=== PATIENT | female | born 1965 | race Caucasian/White ===

== ENCOUNTER → 2016-07-24 | Outpatient (CLI) | payer BC ==
--- NOTE | 2016-07-24 09:44 | WWHP ---
DATE OF SERVICE: 07/24/2016 CHIEF COMPLAINT: The patient is here for her routine gynecologic exam and mammogram. HPI: This is a 51-year-old, G2, P2 with an LMP of 06/23/2016. She states her periods have been somewhat irregular this past year with several skipped periods. She had gone several months without a period when she had a very painful in 12/2015. She again went without periods until 05/2016 when she again had a fairly painful period. Her last menstrual period on 06/23/16 was fine and not very painful. She had occasional hot flashes in the fall, but currently is not experiencing them. PAST MEDICAL HISTORY: Chronic hypertension, sinus problems, seasonal allergies, elevated cholesterol, borderline diabetes, and depression. MEDICATIONS: 1. Labetalol 100 mg b.i.d. 2. Prozac 20 mg daily. 3. Aspirin 325 mg daily. 4. Zyrtec p.r.n. 5. Multivitamin daily. 6. Ibuprofen p.r.n. Allergies to PENICILLIN and ENTEX. 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 FAMILY HISTORY: She had a sister this past year with a brain tumor and also a history of mother who had breast cancer and [place]. Father had hypertension and an [place]. REVIEW OF SYSTEMS: Weight has been stable. She denies respiratory or cardiac problems. GI: She tends to get constipated before her periods. PHYSICAL EXAM: Blood pressure 161/81. Height 5 feet 3 inches. Weight 185 pounds. Temperature 97.9, pulse 59. This is a well-developed, well-nourished white female who is alert and oriented x3 in no acute distress. HEENT is within normal limits. NECK: Supple without mass or thyromegaly. CHEST AND LUNGS: Clear to auscultation. HEART: Regular rate and rhythm. Breasts are without mass or discharge, but they are mildly tender throughout. Axillary exam is negative for adenopathy. BACK: Negative for CVA tenderness. ABDOMEN: Soft, nontender, without palpable masses. PELVIC EXAM: External genitalia reveals mild atrophy without lesions. Cervix and vagina reveal minimal atrophy without lesions. There is no evidence of prolapse. The uterus is midposition, nongravid size and nontender. There are no palpable adnexal masses or tenderness. Rectovaginal exam is negative for mass or tenderness and is negative for occult blood. EXTREMITIES: Nontender. IMPRESSION: 1. A 51-year-old perimenopausal female with normal gynecologic exam. 2. Previous Pap smear showed ASCUS with negative high-risk HPV. 3. Elevated blood pressure with history of chronic hypertension. PLAN: 1. Pap smear was performed. 2. Self breast examination was discussed. 3. Mammogram will be done today. 4. We discussed her elevated blood pressure. I have recommended that she do home blood pressure monitoring regularly and follow up with Dr. Anne regarding her elevated blood pressures. 5. The patient will continue to keep a menstrual calendar and call if she is having menstrual problems. 6. Osteoporosis prevention was discussed. 7. I have recommended screening colonoscopy and she states she has an appointment to do this in [place]. 8. She will return in one year.
--- NOTE | 2016-07-27 13:24 | MM ---
Reason for exam: screening (asymptomatic). Last mammogram was performed 1 year and 5 months ago. History: Family history of premenopausal breast cancer in mother at age 40. Took hormonal contraceptives for 1 year beginning at age 19. Physical Findings: A clinical breast exam by your physician is recommended on an annual basis and results should be correlated with mammographic findings. MG Screening Mammo w CAD Bilateral CC and MLO view(s) were taken. Prior study comparison: February 08, 2015, bilateral MG screening mammo w CAD. February 02, 2014, left breast MG work up mamm w CAD LT. January 20, 2014, bilateral MG screening mammo w CAD. October 21, 2012, bilateral digital screening mammo w/CAD. May 09, 2011, bilateral digital screening mammo w/CAD. The breast tissue is heterogeneously dense. This may lower the sensitivity of mammography. Asymmetric density inferior right breast at a middle depth is more defined. ASSESSMENT: Incomplete: need additional imaging evaluation, BI-RAD 0 RECOMMENDATION: Special view mammogram of the right breast. If lesion persists on supplemental views, image directed ultrasound is recommended. [facility] will attempt to contact patient to return for supplemental views and ultrasound if indicated.
== END | disposition home or self-care (01) ==
LOC: WWCWWP 08:27
PROVIDERS: ATTEND Obstetrics & Gynecology
DX: Z12.31 Encounter for screening mammogram for malignant neoplasm of breast (principal); R92.8 Other abnormal and inconclusive findings on diagnostic imaging of breast

== ENCOUNTER → 2016-08-08 | Outpatient (CLI) | payer BC ==
--- NOTE | 2016-08-09 07:31 | MM ---
Reason for exam: additional evaluation requested from abnormal screening. Last mammogram was performed less than 1 month ago. History: Family history of premenopausal breast cancer in mother at age 40. Took hormonal contraceptives for 1 year beginning at age 19. Physical Findings: Nurse did not find any significant physical abnormalities on exam. MG Work Up Mamm w CAD RT ML and spot compression MLO view(s) were taken of the right breast. Prior study comparison: July 24, 2016, bilateral MG screening mammo w CAD. February 08, 2015, bilateral MG screening mammo w CAD. The breast tissue is extremely dense which could obscure a lesion on mammography. Finding: There are typically benign calcifications in the right breast. No significant changes in finding since July 24, 2016 and February 08, 2015. These results were verbally communicated with the patient and result sheet given to the patient on 08/08/16. ASSESSMENT: Probably benign, BI-RAD 3 RECOMMENDATION: Follow-up diagnostic mammogram of the right breast in 6 months.
== END | disposition home or self-care (01) ==
LOC: RADMAMWWP 14:58
PROVIDERS: ATTEND Obstetrics & Gynecology
DX: R92.8 Other abnormal and inconclusive findings on diagnostic imaging of breast (principal)

== ENCOUNTER → 2017-02-08 | Outpatient (CLI) | payer BC ==
--- NOTE | 2017-02-11 07:56 | MM ---
Reason for exam: follow-up at short interval from prior study. Last mammogram was performed 6 months ago. History: Family history of premenopausal breast cancer in mother at age 40. Took hormonal contraceptives for 1 year beginning at age 19. Physical Findings: Nurse did not find any significant physical abnormalities on exam. MG Diagnostic Mammo RT w CAD CC and MLO view(s) were taken of the right breast. Prior study comparison: August 08, 2016, right breast MG work up mamm w CAD RT. July 24, 2016, bilateral MG screening mammo w CAD. The breast tissue is heterogeneously dense. This may lower the sensitivity of mammography. The originally questioned inferior asymmetric density does not persist. The appearance is unchanged from 2014 and prior. No significant new findings when compared with previous films. These results were verbally communicated with the patient and result sheet given to the patient on 02/08/17. ASSESSMENT: Negative, BI-RAD 1 RECOMMENDATION: Return to routine screening mammogram schedule for both breasts. Back on schedule for July 2016.
== END | disposition home or self-care (01) ==
LOC: RADMAMWWP 13:54
PROVIDERS: ATTEND Obstetrics & Gynecology
DX: R92.8 Other abnormal and inconclusive findings on diagnostic imaging of breast (principal)

== ENCOUNTER → 2017-12-11 | Outpatient (CLI) | payer BC ==
[2017-12-11 08:08] VITALS: BP 158/73; PULSE 61; TEMP 97.9; BMI 36.8
--- NOTE | 2017-12-11 09:11 | P.HPOB ---
History of Present Illness H&P Date: 12/11/17 Chief Complaint: The patient is here for her routine gynecologic exam and mammogram. This is a 52-year-old to P2 with an LMP of September 2017. The patient states her menses have been less frequent and she has had about 6 menses over the last year. Her her menses prior to her LMP was in April 2017. She has been feeling warm at times, but does not call them hot flashes. She is status post tubal sterilization with Hulka clips. She has been having a problem with a rash in the groin increases throughout the summer. It did seem to improve with antifungal cream, but it has come back. She was also treated for ringworm in this area. The rest goes from the groin from the anterior thigh and extends down to the groin area lateral to the labia. She denies any vaginal discharge. She has tried using different underwear. She has also noticed decreased libido and vaginal dryness since April 2017. Review of Systems She had lost weight and was down to 170 pounds in April of this year. Over the past 7 months she has gained about 30 pounds. She had lost the weight previously with diet and exercise, but has not been as good with this during the past 7 months. She denies respiratory, cardiac, or G.I. problems. Skin: as in the HPI. Past Medical History Past Medical History: Diabetes Mellitus (Borderline), Hyperlipidemia, Hypertension Additional Past Medical History / Comment(s): Seasonal allergies and sinus problems. 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 History of Any Multi-Drug Resistant Organisms: None Reported Past Surgical History: Section, Hernia Repair, Tonsillectomy, Tubal Ligation (Hulka clips) Additional Past Surgical History / Comment(s): Colonoscopy in 2017. Past Psychological History: Depression Smoking Status: Never smoker Past Alcohol Use History: Daily (2 per day) Past Drug Use History: None Reported Additional History: She is a and has had a new boyfriend in 2018. 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 - Past Family History Father Family Medical History: Hypertension, Myocardial Infarction (CT) Mother Family Medical History: Cancer (Breast), Myocardial Infarction (CT) Medications and Allergies Home Medications Medication Instructions Recorded Confirmed Type Labetalol [Trandate] 100 mg PO BID 12/11/17 12/11/17 History Allergies Allergy/AdvReac Type Severity Reaction Status Date / Time guaifenesin [From Entex LA] AdvReac headache Unverified 12/11/17 08:02 Penicillins AdvReac hives Unverified 12/11/17 08:01 phenylephrine [From Entex LA] AdvReac headache Unverified 12/11/17 08:02 phenylpropanolamine AdvReac headache Unverified 12/11/17 08:02 [From Entex LA] Exam Vital Signs Temp Pulse BP 12/11/17 08:02 97.9 F 61 158/73 Intake and Output 12/10/17 12/11/17 12/11/17 22:59 06:59 14:59 Other: Weight 94.347 kg Height 5'3", BMI 36.8. This is a well-developed well-nourished heavyset white female who is alert and oriented times 3 in no acute distress. HEENT: Within normal limits. NECK: Supple without mass or thyromegaly. CHEST AND LUNGS: Clear to auscultation. HEART: Regular rate and rhythm. BREASTS: Are without mass or discharge. AXILLARY EXAM: Negative for adenopathy. BACK: Negative for CVA tenderness. ABDOMEN: Soft, nontender, without palpable masses. PELVIC EXAM: Normal external genitalia. There is a female within the groin crease between the abdomen and anterior thigh in this erythema extends to decrease lateral of the labia majora and ends near the perineum. This does not seem to involve the labia majora. Cervix and vagina appear normal. There is no unusual discharge. There is no evidence of prolapse. The uterus is midposition , slightly retroverted, nongravid size and nontender. There are no palpable adnexal masses or tenderness. RECTAL EXAM: rectovaginal exam is negative for mass or tenderness and is negative for occult blood. EXTREMITIES: Nontender. IMPRESSION: 1. 52 year old perimenopausal female with oligomenorrhea and mild vasomotor symptoms. 2. Tinea cruris. Groin fungal infection extending toward the perineum without labial involvement. 3. Decreased libido. This can be from several factors including perimenopausal hormonal changes. PLAN: 1. Pap smear was deferred since she had a normal one last year. 2. Self breast awareness was discussed with the patient. 3. Screening mammogram was done today. 4. Osteoporosis prevention was discussed 5. Nystatin powder BID to the moist groin area. She will also use Lotrisone cream BID times 7 days. The perceptions will be sent to [facility] in [place]. If her symptoms are not improving I have recommended that she consults with a stove tender. I also recommended that she be tested for diabetes and she states she will be doing this with her primary care physician. 6. Lubricant for sexual activity 7. We have also discussed the importance of weight loss with healthy diet and regular exercise. She states she will try to get back into doing this. 8. She will return in one year and PRN.
--- NOTE | 2017-12-12 10:08 | MM ---
Reason for exam: screening (asymptomatic). Last mammogram was performed 10 months ago. History: Family history of premenopausal breast cancer in mother at age 40. Took hormonal contraceptives for 1 year beginning at age 19. Physical Findings: A clinical breast exam by your physician is recommended on an annual basis and results should be correlated with mammographic findings. MG 3D Screening Mammo W/Cad Bilateral CC and MLO view(s) were taken. Prior study comparison: February 08, 2017, right breast MG diagnostic mammo RT w CAD. August 08, 2016, right breast MG work up mamm w CAD RT. The breast tissue is heterogeneously dense. This may lower the sensitivity of mammography. No significant changes when compared with prior studies. ASSESSMENT: Negative, BI-RAD 1 RECOMMENDATION: Routine screening mammogram of both breasts in 1 year.
== END | disposition home or self-care (01) ==
LOC: RADMAMWWP 07:19
PROVIDERS: ATTEND Obstetrics & Gynecology
DX: Z12.31 Encounter for screening mammogram for malignant neoplasm of breast (principal)
CPT/HCPCS: 77063; 77067

== ENCOUNTER → 2019-11-04 | Outpatient (CLI) | payer BC ==
[2019-11-04 09:41] VITALS: BP 173/79; PULSE 55; RESP 18; TEMP 98.5
--- NOTE | 2019-11-04 11:06 | P.HPOB ---
History of Present Illness H&P Date: 11/04/19 Chief Complaint: The patient is here for her routine gynecologic exam and ma mmogram. This is a 54-year-old with an LMP of 2018. The patient has been experiencing some pain with sexual intercourse in certain positions. She has noticed a right lower quadrant abdominal pain when she is having sexual intercourse while on her left side. It can start as being sharp and does gradually get better, but she will usually change positions when she notices this. This has been going on for about 2 months with sexual intercourse. The pain can be up to an 8 out of 10 when it occurs during sexual intercourse does gradually improve during sexual intercourse. It is currently at a 1 out of 10 now. She has lost about 60 pounds over an 8 month period with dietary changes and this was done after she was diagnosed with type 2 diabetes. Review of Systems she states she has lost about 60 pounds over the past 8 months with dietary changes. It has been about 45 pounds since her last annual examination. She denies respiratory, cardiac, or GI problems. Past Medical History Past Medical History: Diabetes Mellitus, Hyperlipidemia, Hypertension Additional Past Medical History / Comment(s): Type 2 diabetes diet controlled. Seasonal allergies and sinus problems. 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 History of Any Multi-Drug Resistant Organisms: None Reported Past Surgical History: Section, Hernia Repair, Tonsillectomy, Tubal Ligation Additional Past Surgical History / Comment(s): Colonoscopy in 2017(next after 5yr). Past Psychological History: Depression Smoking Status: Never smoker Past Alcohol Use History: Daily (2 per day) Past Drug Use History: None Reported Additional History: She is a and has been with her boyfriend since 2018. She does live with him. 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 - Past Family History Father Family Medical History: Hypertension, Myocardial Infarction ([place]) Mother Family Medical History: Cancer, Myocardial Infarction ([place]) Additional Family Medical History / Comment(s): Breast cancer Sister(s) Family Medical History: Cancer Additional Family Medical History / Comment(s): from colon cancer. Medications and Allergies Home Medications Medication Instructions Recorded Confirmed Type Labetalol [Trandate] 100 mg PO BID 12/11/17 11/04/19 History Aspirin 81 mg PO DAILY 11/04/19 11/04/19 History Cetirizine HCl [Zyrtec] 10 mg PO DAILY 11/04/19 11/04/19 History Cholecalciferol [Vitamin D3] 1 tab PO DAILY 11/04/19 11/04/19 History Vitamin B Complex 1 each PO DAILY 11/04/19 11/04/19 History Allergies Allergy/AdvReac Type Severity Reaction Status Date / Time guaifenesin [From Entex LA] AdvReac headache Unverified 11/04/19 09:35 Penicillins AdvReac hives Unverified 11/04/19 09:35 phenylephrine [From Entex LA] AdvReac headache Unverified 11/04/19 09:35 phenylpropanolamine AdvReac headache Unverified 11/04/19 09:35 [From Entex LA] Exam Vital Signs Temp Pulse Resp BP Pulse Ox 11/04/19 09:35 98.5 F 55 L 18 173/79 98 Intake and Output 11/03/19 11/04/19 11/04/19 22:59 06:59 14:59 Other: Weight 74.843 kg Height 5 feet 3-1/2 inches, weight 165 pounds, BMI 28.8. This is a well-developed well-nourished white female who is alert and oriented times 3 in no acute distress. HEENT: Within normal limits. NECK: Supple without mass or thyromegaly. CHEST AND LUNGS: Clear to auscultation. HEART: Regular rate and rhythm. BREASTS: Are without mass or discharge. AXILLARY EXAM: Negative for adenopathy. BACK: Negative for CVA tenderness. ABDOMEN: Soft, mild right mid abdominal tenderness without rebound, without palpable masses. The breast of the abdomen is nontender. The abdomen is nondistended. PELVIC EXAM: Normal external genitalia. Cervix and vagina appear normal with mild atrophy. The cervix is slightly stenotic secondary to atrophy. There is no unusual discharge. There is no cervical motion tenderness. There is no evidence of prolapse. The uterus is midposition, nongravid size and nontender. There are no palpable adnexal masses or tenderness. RECTAL EXAM: Rectovaginal exam is negative for mass or tenderness and is negative for occult blood. EXTREMITIES: Nontender. IMPRESSION: 1. 54-year-old menopausal female with a 2 month history of right lower quadrant dyspareunia while having sexual intercourse on her left side. Differential diagnosis will include pelvic and abdominal adhesions, ovarian cyst and nontender gynecologic pain. Her pelvic exam was unremarkable and the abdominal tenderness is more toward the mid abdomen. This may make adhesions more likely. 2. Elevated blood pressure with history of chronic hypertension. PLAN: 1. Pap smear was performed. 2. Self breast awareness was discussed with the patient. 3. Screening mammogram will be done today. 4. Pelvic ultrasound was recommended and the order slip was given to the patient for this. If unremarkable, we will consider conservative management at this time. If her symptoms persist or are worsening, consider referral for laparoscopic examination. 5. We have discussed her elevated blood pressure. She states she does have a blood pressure cuff so she can take it at home. I have recommended that she check her own blood pressure on a regular basis and follow-up with Dr. Anne for blood pressure elevations. 6. She was advised to return in one year for her annual well woman exam and as needed.
--- NOTE | 2019-11-05 08:45 | MM ---
Reason for exam: screening (asymptomatic). Last mammogram was performed 1 year and 11 months ago. History: Family history of premenopausal breast cancer in mother at age 40. Took hormonal contraceptives for 1 year beginning at age 19. Physical Findings: A clinical breast exam by your physician is recommended on an annual basis and results should be correlated with mammographic findings. MG Screening Mammo w CAD Bilateral CC and MLO view(s) were taken. Prior study comparison: December 11, 2017, bilateral MG 3d screening mammo w/cad. February 08, 2017, right breast MG diagnostic mammo RT w CAD. The breast tissue is heterogeneously dense. This may lower the sensitivity of mammography. Benign appearing bilateral calcifications. No significant changes when compared with prior studies. ASSESSMENT: Benign, BI-RAD 2 RECOMMENDATION: Routine screening mammogram of both breasts in 1 year.
== END | disposition home or self-care (01) ==
LOC: WWCWWP 09:27
PROVIDERS: ATTEND Obstetrics & Gynecology
DX: Z12.31 Encounter for screening mammogram for malignant neoplasm of breast (principal)
CPT/HCPCS: 77067

== ENCOUNTER → 2019-11-20 | Outpatient (CLI) | payer BC ==
--- NOTE | 2019-11-20 12:02 | US ---
EXAMINATION TYPE: US pelvis complete transvag transvag DATE OF EXAM: 11/20/2019 COMPARISON: NONE CLINICAL HISTORY: 54-year-old female R10.2 Pelvic and perineal pain, N94.1 Dyspareunia. TECHNIQUE: Transabdominal sonographic images of the pelvis were acquired. Transvaginal sonographic i mages were medically necessary to better assess the following anatomy: Ovaries Date of LMP: 1 year ago FINDINGS: EXAM MEASUREMENTS: Uterus: 6.4 x 3.4 x 4.8 cm Endometrial Stripe: 0.3 cm Right Ovary: 5.7 x 4.8 x 4.4 cm Left Ovary: 3.4 x 3.2 x 2.6 cm 1. Uterus: Retroverted but otherwise wnl 2. Endometrium: wnl 3. Right Ovary: Large cyst measuring 5.7 x 6.2 x 4.8 cm, there is an area of 2.5 x 0.5 cm mural base d nodularity or prominent reverberation artifact along the anterior wall. The lateral fever. Satisfac tory arterial and venous flow within the right ovary itself. 4. Left Ovary: Multiple cystic areas visualized, largest 1.9 x 2.1 x 2.1 cm 5. Bilateral Adnexa: wnl 6. Posterior cul-de-sac: wnl IMPRESSION: 1. Large 6.2 cm cyst of the right ovary. Follow-up in 6-8 weeks to reassess. No sonographic evidence for right ovarian torsion. 2. Multiple cysts in the left ovary measuring up to 2.1 cm. This can also be reassessed at follow-up.
--- NOTE | 2019-11-24 10:37 | P.PN ---
Progress Note - Text Progress Note Date: 11/24/19 OUTPATIENT FOLLOW-UP NOTE TEST(S)/RESULTS: Pelvic ultrasound done on 11/20/2019 shows a 6.2 cm right ovarian cyst along with a cystic left ovary with either multiple cysts or a single cyst with septations measuring approximately 3 x 3 cm. METHOD OF NOTIFICATION: The patient was notified by phone. PATIENT COMMENTS: She now experiences dyspareunia when she is on her left side or right side. DIAGNOSIS: Dyspareunia with ultrasound findings of large right ovarian cyst and cystic left ovary in the menopause. DISCUSSION: The patient also had an abnormal Paps or showing ASCUS with positive high-risk HPV which does require colposcopic examination. I have reviewed the pelvic ultrasound with Dr. Davis, the radiologist, who thinks the cystic left ovary may represent a cyst with septations rather than multiple adjacent cysts. I have discussed these findings with the patient. We have discussed options such as conservative management with serial pelvic ultrasounds. We have also discussed the option of surgical removal of the masses. Since she is postmenopausal, I do not believe these are physiologic cysts and are less likely to resolve on their own. PLAN: The patient will be referred to Dr. Leal for colposcopic examination and evaluation and possible treatment for the postmenopausal cystic masses.
== END | disposition home or self-care (01) ==
LOC: RADUSWWP 07:06
PROVIDERS: ATTEND Obstetrics & Gynecology
DX: N83.201 Unspecified ovarian cyst, right side (principal); N83.202 Unspecified ovarian cyst, left side
CPT/HCPCS: 76830; 76856

== ENCOUNTER → 2020-08-02 | Outpatient (CLI) | payer BC | END | disposition home or self-care (01) | LOC: LABWHC1 11:34 | PROVIDERS: ATTEND Obstetrics & Gynecology | DX: N83.209 Unspecified ovarian cyst, unspecified side (principal); Z78.0 Asymptomatic menopausal state | CPT/HCPCS: 36415; 81503 ==

== ENCOUNTER → 2021-12-13 | Outpatient (CLI) | payer BC ==
--- NOTE | 2021-12-14 08:26 | MM ---
Reason for Exam: Screening (asymptomatic). Last mammogram was performed 2 year(s) and 1 month(s) ago. Patient History: Menarche at age 11. First Full-Term at age 17. Left ovary removed at age 55. Right ovary removed at age 55. Postmenopausal. Patient has history of breast feeding. Hormonal Contraceptives, starting at age 19 for 1 year. Mother had breast cancer, age 40. Risk Values: Danica 5 year model risk: 2.4%. NCI Lifetime model risk: 14.2%. Prior Study Comparison: 02/08/2017 Right Diagnostic Mammogram, [facility]. 12/11/2017 Bilateral Screening Mammogram, [facility]. 11/04/2019 Bilateral Screening Mammogram, [facility]. Tissue Density: There are scattered fibroglandular densities. Findings: Analyzed By CAD. There is no suspicious group of microcalcifications or new suspicious mass in either breast. Overall Assessment: Negative, BI-RAD 1 Management: Screening Mammogram of both breasts in 1 year. A clinical breast exam by your physician is recommended on an annual basis and results should be correlated with mammographic findings. Electronically signed and approved by: Caleb Chapa M.D. Radiologis
== END | disposition home or self-care (01) ==
LOC: RADMAMWWP 14:51
PROVIDERS: ATTEND Obstetrics & Gynecology
DX: Z12.31 Encounter for screening mammogram for malignant neoplasm of breast (principal); Z80.3 Family history of malignant neoplasm of breast; Z78.0 Asymptomatic menopausal state
CPT/HCPCS: 77063; 77067

== ENCOUNTER → 2023-06-11 | Outpatient (CLI) | payer BC ==
[2023-06-11 16:37] VITALS: BP 208/85; PULSE 62; RESP 17; TEMP 97.9
--- NOTE | 2023-06-11 17:25 | P.HPOB ---
History of Present Illness H&P Date: 06/11/23 Chief Complaint: The patient is here for her routine gynecologic care. This is a 58-year-old with an LMP of 2018. The patient is complaining of vulvar pressure, itching, burning, and soreness. On 05/31/2023 she states her boyfriend used a new lubricant with sexual activity. One week later she started having her vulvar symptoms. She use [id number] miconazole cream in the vagina and on the vulva. She states it did not really help she denies vaginal discharge or vaginal odor. She previously was seen and had an ASCUS Pap smear on 11/04/2019 which had positive high-risk HPV(-16, -18). She was referred to Dr. Leal who did her colposcopic examination on 12/08/2019 and the cord was normal with ECC showing low-grade EWA. She also had a pelvic ultrasound on 11/20/2019 which showed a 6.2 cm right adnexal cyst. The patient states she followed up with Dr. Leal and had additional testing which led her to be referred to Dr. Wyatt Mehta. She sees Dr. Mehta did a LEEP procedure of the cervix and laparoscopic BSO in 2020. The BSO findings were benign according to the patient. She did have some additional Pap smears that show some mild changes. She states she is due for a Pap smear and she came here because of the vulvar symptoms. Review of Systems She is gained about 63 pounds since she was last here in 2019. In 2019 she had recently lost about 60 pounds with a weight loss program, but seemed to gain did all back. Respiratory: She has been having some sinus issues. She denies cardiac or GI problems. Past Medical History Past Medical History: Diabetes Mellitus, Hyperlipidemia, Hypertension Additional Past Medical History / Comment(s): Seasonal allergies and sinus problems. 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 History of Any Multi-Drug Resistant Organisms: None Reported Past Surgical History: Section, Hernia Repair, Tonsillectomy, Tubal Ligation Additional Past Surgical History / Comment(s): Colonoscopy in 2017. Past Psychological History: Depression Smoking Status: Never smoker Past Alcohol Use History: Daily (2 glasses of wine per day.) Past Drug Use History: None Reported Additional History: She is a . She has been with her fianc since 2018. They live together. 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 - Past Family History Father Family Medical History: Hypertension, Myocardial Infarction ([place]) Mother Family Medical History: Cancer, Myocardial Infarction ([place]) Additional Family Medical History / Comment(s): Breast cancer Sister(s) Family Medical History: Cancer Additional Family Medical History / Comment(s): from colon cancer. Medications and Allergies Home Medications Medication Instructions Recorded Confirmed Type Labetalol [Trandate] 200 mg PO BID 12/11/17 06/11/23 History Aspirin 81 mg PO DAILY 11/04/19 06/11/23 History Cetirizine HCl [Zyrtec] 10 mg PO DAILY 11/04/19 06/11/23 History Vitamin B Complex 1 each PO DAILY 11/04/19 06/11/23 History Atorvastatin [Lipitor] 10 mg PO DAILY 06/11/23 06/11/23 History Losartan Potassium 100 mg PO DAILY 06/11/23 06/11/23 History metFORMIN HCL 500 mg PO DAILY 06/11/23 06/11/23 History Allergies Allergy/AdvReac Type Severity Reaction Status Date / Time guaifenesin [From Entex LA] AdvReac headache Unverified 06/11/23 16:16 Penicillins AdvReac hives Unverified 06/11/23 16:16 phenylephrine [From Entex LA] AdvReac headache Unverified 06/11/23 16:16 phenylpropanolamine AdvReac headache Unverified 06/11/23 16:16 [From Entex LA] Exam Vital Signs Temp Pulse Resp BP Pulse Ox 06/11/23 16:20 97.9 F 62 17 208/85 98 Intake and Output 06/11/23 06/11/23 06/11/23 06:59 14:59 22:59 Other: Weight 103.419 kg Height 5 feet 2 inches, weight 228 pounds, BMI 41.7. Repeat blood pressure 200/90 P This is a well-developed well-nourished heavyset white female who is alert and oriented times 3 in no acute distress. HEENT: Within normal limits. NECK: Supple without mass or thyromegaly. CHEST AND LUNGS: Clear to auscultation. HEART: Regular rate and rhythm. BREASTS: Are without mass or discharge. AXILLARY EXAM: Negative for adenopathy. BACK: Negative for CVA tenderness. ABDOMEN: Soft, nontender, without palpable masses. PELVIC EXAM: External genitalia reveals mild atrophy with mild generalized vulvar erythema which extends to the perineum and perianal areas. There is no pallor. There is no ulceration or excoriation noted. Cervix and vagina appear normal with mild atrophy. The cervix is without lesions. The cervix is somewhat stenotic making the endocervical part of the Pap smear difficult. There is a whitish discharge which may be the cream that she used yesterday for a possible yeast infection. There is no evidence of prolapse. The uterus is midposition, nongravid size and nontender. There are no palpable adnexal masses or tenderness. RECTAL EXAM: Rectovaginal exam is negative for mass or tenderness and is negative for occult blood. EXTREMITIES: Nontender. IMPRESSION: 1. 58-year-old menopausal female with recent vulvar inflammation, burning, and itching with mild vulvitis on exam today. Differential diagnosis will include contact vulvar dermatitis possibly secondary to the new lubricant recently used. Differential diagnosis will also include Prema vaginitis, bacterial vaginosis, and less likely, Trichomonas. 2. Incomplete database. Her history of LEEP procedure and BSO during the past few years will need to be confirmed. 3. Elevated blood pressure with history of chronic hypertension. PLAN: 1. Pap smear cotest was performed. 2. Self breast awareness was discussed with the patient. We have also discussed symptoms associated with inflammatory breast cancer. 3. Screening mammogram was done in January 2023 at [facility] per the patient. She states it was normal. She will repeat this after 1 year. 4. Kenalog 0.1% cream twice a day to the external vulva as needed for vulvar itching and pruritus. The electronic prescription will be sent to [facility] pharmacy in [facility]. 5. Affirm vaginitis panel from the vagina will be sent. 6. Obtain records from Dr. Wyatt Mehta regarding the BSO and LEEP procedures done in 2020. We will also try to get records from Dr. Leal's office regarding this. 7. She was advised to return in one year for her annual well woman exam and as needed.
[2023-06-12 13:16] LABS: Gardnerella Negative (Negative); Trichomonas Negative (Negative)
== END ==
LOC: WWCWWP 16:01
PROVIDERS: ATTEND Obstetrics & Gynecology
DX: N76.2 Acute vulvitis (principal); L29.2 Pruritus vulvae; I10 Essential (primary) hypertension; Z78.0 Asymptomatic menopausal state; Z88.0 Allergy status to penicillin; Z91.048 Other nonmedicinal substance allergy status; Z88.8 Allergy status to other drugs, medicaments and biological substances
CPT/HCPCS: 87480; 87510; 87660

== ENCOUNTER → 2024-02-25 | Outpatient (CLI) | payer BC ==
[2024-02-25 14:21] VITALS: BP 179/95; PULSE 62; RESP 16; TEMP 98.1
--- NOTE | 2024-02-25 14:49 | P.PN ---
Progress Note - Text Progress Note Date: 02/25/24 Chief Complaint: Groin irritation for 2 months. HPI: This is a 58-year-old G2, P2 with an LMP of 2018. The patient states she has been experiencing vulvar and groin inflammation for about 2 months. She occasionally notices a thin clear discharge with slight odor. It can occasionally appear white, but not thick. She denies any recent antibiotics. She did notice an increase in irritation when she used a lubricant with intercourse. She states it previously did not cause problems. The irritation seems to be in the creases in the groin area and can extend toward the rectal area. She was treated for a yeast infection in May 2023. ROS: She denies fever. She denies respiratory or cardiac problems. GI: Occasional loose stool. PE: Blood pressure: 179/95, Height: 5 feet 3 inches, Weight: 237 pounds, Temperature: 98.1, Pulse: 62. Pulse oximeter 97%. This is a well developed, well nourished, white female who is alert and orientedx3, in no acute distress. External genitalia reveals a mild generalized vulvar erythema extending to the creases in the groin. There is increased area of erythema directly in the creases of the groin. There is also mild generalized erythema that extends to the perianal area. Vagina: There is no unusual discharge or odor noted. Impression: 1. 58-year-old menopausal female with groin intertrigo. Differential diagnosis will also include Prema vaginitis, bacterial vaginosis and nonspecific dermatitis. Plan: 1. Lotrisone cream twice daily x 1 week then as needed. 2. Affirm vaginitis panel was taken from the vagina. 3. She was instructed to avoid over washing with soap. She is also to avoid rubbing and scratching in these areas. She should avoid her hot tub for the time being and she is also not to douche. 4. She will return for her annual well woman examination and sooner if problems or symptoms do not improve. Time spent with the patient: 20 minutes
--- NOTE | 2024-02-26 16:40 | P.PN ---
Progress Note - Text Progress Note Date: 02/26/24 OUTPATIENT FOLLOW-UP NOTE TEST(S)/RESULTS: The affirm vaginitis panel done on 02/25/2024 was positive for Prema and negative for Gardnerella and negative for trichomonas. METHOD OF NOTIFICATION: The patient was notified by phone on 02/26/2024. PATIENT COMMENTS: DIAGNOSIS: Prema vaginitis. DISCUSSION: She will be treated with Diflucan 150 mg by mouth q. 48 hours x 2 doses. Electronic prescription will be sent to [facility] pharmacy in [place]. PLAN: As above. Call if symptoms have not improved or if problems. She can also use the Lotrisone cream on the skin and groin areas as directed.
== END ==
LOC: WWCWWP 14:00
PROVIDERS: ATTEND Obstetrics & Gynecology
DX: B37.31 Acute candidiasis of vulva and vagina (principal); B96.89 Other specified bacterial agents as the cause of diseases classified elsewhere; Z88.0 Allergy status to penicillin; Z88.8 Allergy status to other drugs, medicaments and biological substances